=== PATIENT | male | born 1980 ===

== ENCOUNTER 2017-11-19 20:08 | Emergency (ER) | payer SELFPAY ==
--- NOTE | 2017-11-19 20:58 | RAD ---
RIGHT ANKLE THREE VIEWS: 11/19/17 HISTORY: Pain. Soccer accident. FINDINGS: Mildly displaced distal fibular fracture. Associated soft tissue swelling. Mild widening of the media l joint space may be due to ligamentous injury. IMPRESSION: Fracture and possible ligamentous injury as described above. POS: [facility]
== END 2017-11-19 21:00 | disposition home or self-care (01) ==
LOC: ERS 20:08
DX: S82.831A Other fracture of upper and lower end of right fibula, initial encounter for closed fracture (principal); X50.9XXA Other and unspecified overexertion or strenuous movements or postures, initial encounter; Y93.66 Activity, soccer
CPT/HCPCS: 29515

== ENCOUNTER 2017-11-23 20:14 | Emergency (ER) | payer SELFPAY | END 2017-11-23 22:26 | disposition home or self-care (01) | LOC: ERS 20:14 | DX: S82.831A Other fracture of upper and lower end of right fibula, initial encounter for closed fracture (principal); Y93.66 Activity, soccer; F17.210 Nicotine dependence, cigarettes, uncomplicated | CPT/HCPCS: 29515 ==